=== PATIENT | male | born 1970 | race Hispanic/Latino ===

== ENCOUNTER 2021-08-12 19:47 | Emergency (ER) | payer OTHER ==
[~2021-08-12] VITALS: Ht 177.8 cm; Wt 85.7 kg
[2021-08-12 20:28] VITALS: BP 132/89
[2021-08-12] MEDS ORDERED: TORADOL IM ONE (20:30)
--- NOTE | 2021-08-12 20:33 | ER.PDOC ---
General Chief Complaint: Requesting Medical Care Stated Complaint: SWELLING/LEFT TOE TRAVEL OUT OF US: No Time seen by MD: 20:20 Source: patient Exam Limitations: no limitations History of Present Illness Initial Comments This 50-year-old male comes in with complaint of gout in his left great toe. Patient stated it started on Monday yesterday. Patient states that this is his third flareup of gout in the last 10 years. Because it occur so rarely, he does not take any routine meds for it. Patient does admit to drinking a lot of beer over mild Mother's Day and thinks it may be that is what flared them up now. He has no other complaints. Asking if he had a PCP and indicated he does ask him if he had a uric acid level checked and is that its been a while. I offered to check it here tonight and he declined and stated he can follow-up with his PCP and have uric acid level checked and treat with medicines if needed. Right now he just wants a Toradol shot and anti- inflammatories to go home with. Timing/Duration: 24 hours, getting worse, changing over time Modifying Factors: improves with movement Associated Symptoms: denies symptoms (Any movement or touching is extremely painful.) Past Medical History Medical History: other (Gout) Surgical History: no surgical history Social History Smoking: non-smoker Alcohol Use: occassionally Drug Use: none Review of Systems Constitutional: denies no symptoms reported, denies see HPI, denies chills, denies diaphoresis, denies fever, denies malaise, denies weakness, denies other EENTM: denies no symptoms reported, denies see HPI, denies eye pain, denies blurred vision, denies tearing, denies double vision, denies ear pain, denies ear discharge, denies nose pain, denies nose congestion, denies throat pain, denies throat swelling, denies mouth pain, denies mouth swelling, denies other Respiratory: denies no symptoms reported, denies see HPI, denies cough, denies orthopnea, denies shortness of breath, denies stridor, denies wheezing, denies other Cardiovascular: denies no symptoms reported, denies see HPI, denies chest pain, denies edema, denies palpitations, denies syncope, denies other Gastrointestinal: denies no symptoms reported, denies see HPI, denies abdominal pain, denies constipation, denies diarrhea, denies nausea, denies vomiting, denies other Genitourinary: denies no symptoms reported, denies see HPI, denies discharge, denies dysuria, denies frequency, denies hematuria, denies pain, denies other Musculoskeletal: see HPI, gout, joint pain, joint swelling (Left great toe) Skin: denies no symptoms reported, denies see HPI, denies change in color, denies change in hair/nails, denies dryness, denies lesions, denies lumps, denies rash, denies other Psychiatric/Neurological: denies no symptoms reported, denies see HPI, denies anxiety, denies depressed, denies emotional problems, denies headache, denies numbness, denies paresthesia, denies pre-existing deficit, denies seizure, denies tingling, denies tremors, denies weakness, denies other Hematologic/Lymphatic: denies no symptoms reported, denies see HPI, denies anemia, denies blood clots, denies easy bleeding, denies easy bruising, denies swollen glands, denies other Immunological/Allergic: denies no symptoms reported, denies see HPI, denies food allergy, denies grass allergy, denies mold allergy, denies pollen allergy, denies HIV/AIDS, denies transplant Physical Exam General Appearance: No Apparent Distress, WD/WN EENT: eyes nml inspection Neck: Non-Tender Respiratory: chest non-tender, lungs clear, normal breath sounds, no respiratory distress CVS: reg rate & rhythm, no murmur, no gallop Gastrointestinal: Normal Bowel Sounds, Non Tender Back: Normal Inspection Extremities: Other (Unremarkable except for left great toe as inflamed and swollen metatarsal phalangeal joint. Exquisitely tender for even light touch. This is totally completely consistent with his history of gout) Neurologic/Psychiatric: board setter II-XII NML as Tested, No Motor/Sensory Deficits, Alert, Normal Mood/Affect, Oriented x 3 Skin: Normal Color, Warm/Dry Lymphatic: No Adenopathy Results/Orders Results/Orders Orders - MARGE JAMES MD Ketorolac Tromethamine (Toradol) (08/12/21 20:30) ER DEPART Departure Time of Disposition: 20:32 Disposition: 01 HOME / SELF CARE / HOMELESS Impression: Primary Impression: Gout attack Condition: Stable Referrals: PCP,UNKNOWN (PCP) PRIMARY CARE PROVIDER Comments Toradol 10 mg tabs, 1 p.o. 4 times daily as needed pain, dispense 20. Duration or Time Spent with Pa: 10m MARGE JAMES MD August 12, 2021 20:33
[2021-08-12 20:37] VITALS: BP 132/89
[2021-08-12] MEDS ORDERED: TORADOL ONE (20:38)
[2021-08-12 20:45] VITALS: BP 129/77
== END 2021-08-12 20:44 | disposition home or self-care (01) ==
LOC: ER 19:47
DX: M10.9 Gout, unspecified (principal); F10.20 Alcohol dependence, uncomplicated
CPT/HCPCS: 96372; 99283; J1885